=== PATIENT | female | born 1975 | race Caucasian/White ===

== ENCOUNTER 2019-08-23 08:28 | Emergency (ER) | payer OTHER ==
[~2019-08-23] VITALS: Ht 162.6 cm; Wt 90.9 kg
[2019-08-23] MEDS ORDERED: ATOR10TA84 PO (08:33)
[2019-08-23] MEDS ORDERED: [UNRECOGNIZED DRUG - REMARK] PO (08:33)
[2019-08-23] MEDS ORDERED: ARIP2 PO (08:33)
[2019-08-23 11:15] VITALS: BP 119/79
[2019-08-23] MEDS ORDERED: BENZONATATE 100 MG CAPSULE PO ONE (11:30)
== END 2019-08-23 11:45 | disposition home or self-care (01) ==
LOC: EMS 08:30
DX: R05 Cough (principal); R50.9 Fever, unspecified; E78.00 Pure hypercholesterolemia, unspecified; I10 Essential (primary) hypertension; F31.9 Bipolar disorder, unspecified; F17.210 Nicotine dependence, cigarettes, uncomplicated; Z79.899 Other long term (current) drug therapy
CPT/HCPCS: 99406

== ENCOUNTER 2019-09-01 08:13 | Emergency (ER) | payer OTHER ==
[~2019-09-01] VITALS: Ht 154.9 cm; Wt 95.0 kg
[~2019-09-01 08:13] MED LIST: ARIP2 PO; ATOR10TA84 PO; [UNRECOGNIZED DRUG - REMARK] PO
[2019-09-01] MEDS ORDERED: TOPI25 PO (08:26)
[2019-09-01] MEDS ORDERED: PERTUSS(ACELL),DIPH,TET VAC/PF 0.5 ML VIAL IM ONE (10:00)
[2019-09-01 12:00] VITALS: BP 119/84
[2019-09-01] MEDS ORDERED: IBUPROFEN 800 MG TABLET PO ONE (12:00)
== END 2019-09-01 12:10 | disposition home or self-care (01) ==
LOC: EMS 08:17
DX: S82.831A Other fracture of upper and lower end of right fibula, initial encounter for closed fracture (principal); S80.211A Abrasion, right knee, initial encounter; E78.00 Pure hypercholesterolemia, unspecified; I10 Essential (primary) hypertension; F31.9 Bipolar disorder, unspecified; F17.210 Nicotine dependence, cigarettes, uncomplicated; Z79.899 Other long term (current) drug therapy; W01.0XXA Fall on same level from slipping, tripping and stumbling without subsequent striking against object, initial encounter; Y93.89 Activity, other specified; Y92.89 Other specified places as the place of occurrence of the external cause; Y99.8 Other external cause status
CPT/HCPCS: 29515; 90471; 90715; 99406